=== PATIENT | male | born 1960 | race Caucasian/White ===

== ENCOUNTER 2017-04-04 15:40 | Emergency (ER) | payer BC, OTHER ==
[~2017-04-04] VITALS: Ht 175.3 cm; Wt 95.3 kg
[2017-04-04] MEDS ORDERED: BUPR150T14 PO (16:26)
[2017-04-04] MEDS ORDERED: METF850T2 PO (16:26)
[2017-04-04] MEDS ORDERED: MULT1CAP27 PO (16:26)
[2017-04-04] MEDS ORDERED: ASPI-586 PO (16:26)
--- NOTE | 2017-04-04 16:54 | ED GI ---
General Chief Complaint: Rect Problems Stated Complaint: BLEEDING HEMORRHOID Nursing Triage Note: TO ROOM 01 WITH COMPLAINTS OF A BLEEDING HEMORRHOID. STATES HE HAD SUTURES PLACED IN IT A WEEK AGO AND IT STARTED BLEEDING AGAIN AFTER LIFTING AND HAVING A BM TODAY. Sepsis Screen: No Definite Risk Allergies and Home Medications Allergies Coded Allergies: No Known Drug Allergies (Unverified , 04/04/17) Home Medications Aspirin 81 Mg Tablet.dr, 81 MG PO DAILY, (Reported) Bupropion HCl 150 Mg Tablet.er, 150 MG PO DAILY, (Reported) Metformin HCl 850 Mg Tablet, 850 MG PO BID, (Reported) Multivitamin 1 Each Capsule, 1 EACH PO DAILY, (Reported) Past Vsqgtul-Hdngtc-Ghmstd Hx Patient Social History Alcohol Use: Denies Use Recreational Drug Use: No Smoking Status: Never a Smoker Recent Foreign Travel: No Contact w/Someone Who Travel: No Recent Infectious Disease Expo: No Recent Hopitalizations: No Surgeries Surgeries: Orthopedic Gastrointestinal Gastrointestinal Disorders: Hemorrhoids Physical Exam Vital Signs VS - Last 72 Hours, by Label 04/04/17 16:19 Temp 98.0 Pulse 78 Resp 16 B/P (MAP) 139/80 Capillary Refill : Less Than 3 Seconds Progress/Results/Core Measures Results/Orders Vital Signs/I&O Vital Sign - Last 12Hours 04/04/17 16:19 Temp 98.0 Pulse 78 Resp 16 B/P (MAP) 139/80 Blood Pressure Mean: 99 Departure Impression Impression: Primary Impression: Bleeding hemorrhoid Disposition: 01 HOME, SELF-CARE Condition: Improved Departure-Patient Inst. Decision time for Depature: 16:49 Referrals: NO,LOCAL PHYSICIAN (PCP/Family) Primary Care Physician Patient Instructions: Hemorrhoids (DC) Add. Discharge Instructions: At the time of your visit there was no active bleeding at your hemorrhoids site. If bleeding returns, use gauze pads and apply pressure. Rest if possible. You may continue using Preparation H if helpful. Because your wound has not yet healed, it would be better to avoid exposure to dirty environment such as glass water. Return to the emergency room or your physician with any problems or concerns. Avoid wiping as much as possible until healed. Alternatively, you may rinse with warm water and blot dry. All discharge instructions reviewed with patient and/or family. Voiced understanding. ALE GASPAR MD Apr 04, 2017 16:54
[2017-04-04 17:04] VITALS: BP 131/98
== END 2017-04-04 17:04 | disposition home or self-care (01) ==
LOC: ER 15:44
DX: K64.9 Unspecified hemorrhoids (principal); Z79.82 Long term (current) use of aspirin
CPT/HCPCS: 99282